=== PATIENT | female | born 1990 | race Caucasian/White ===

== ENCOUNTER 2016-04-15 13:01 | Emergency (ER) | payer BC ==
[~2016-04-15] VITALS: Ht 167.6 cm; Wt 71.1 kg
[~2016-04-15 13:01] MED LIST: ACTICLATE75 MG PO; CEFDINIR300 MG PO; MOTRIN800 MG PO; NAPROXEN500 MG PO; NOHOMEMEDS; SERTRALINE HCL100 MG PO; ZOFRAN4 MG PO
[2016-04-15 14:49] LABS: ADD MIUA? YES; BILIRUBIN NEGATIVE; BLOOD NEGATIVE; COLOR YELLOW ((YELLOW)); GLUCOSE (STRIP) NEGATIVE; KETONES NEGATIVE; LEUKOCYTES NEGATIVE; NITRITE NEGATIVE; PROTEIN (STRIP) 30; SPECIFIC GRAVITY 1.022 (1.000-1.030); UROBILINOGEN 0.2 MG/DL (0.2-1.0)
[2016-04-15 14:50] LABS: HEMATOCRIT 38.3 % (36.0-46.0); MCH 30.2 PG (29.0-34.0); MCHC 35.5 G/DL (30.0-36.0); MCV 85.1 FL (83-99); MEAN PLAT.VOLUME 10.1 uM^3 (9.5-12.4); PLATELET COUNT 242 K/uL (156-360); RBC DIS.WIDTH-CV 13.1 % (11.8-14.6); RBC DIS.WIDTH-SD 40.1 % (39-53); WHITE BLOOD COUNT 11.1 K/uL (4.1-10.2)
[2016-04-15 14:58] LABS: CHLORIDE 103 mEq/L (99-109); POTASSIUM 3.9 mEq/L (3.7-5.4); SODIUM 140 mEq/L (136-147)
[2016-04-15 14:59] LABS: GLUCOSE 140 mg/dL (70-99)
[2016-04-15 15:01] LABS: ANION GAP 12 MEQ/L (2-14)
[2016-04-15 15:03] LABS: GFR ESTIMATE (CALCULATED) > 59 mL/min/
[2016-04-15 15:04] LABS: UREA NITROGEN (BUN) 12 mg/dL (9-23)
[2016-04-15 15:08] LABS: BACTERIA 1+; CASTS NONE SEEN /LPF; CRYSTALS NONE SEEN; EPITHELIAL CELLS 1+; MUCUS NONE SEEN; PATHOLOGICAL CAST NONE SEEN; SMALL ROUND CELL NONE SEEN; UCUL ADDED? NO; WHITE BLOOD CELLS 0-5 /HPF (0-5); YEAST-LIKE CELL NONE SEEN
[2016-04-15 15:39] LABS: TOTAL BILIRUBIN 0.8 mg/dL (0.0-1.0)
[2016-04-15 15:40] LABS: ALKALINE PHOSPHATASE 64 IU/L (3-129)
[2016-04-15 15:42] LABS: DIRECT BILIRUBIN 0.3 mg/dL (0.0-0.3)
[2016-04-15 15:43] LABS: LIPASE 29 U/L (1.0-51.0)
[2016-04-15 15:49] LABS: QUANTITATIVE HCG < 4.0 MIU/ML
[2016-04-15] MEDS ORDERED: FLOMAX0.4 MG PO (16:53)
[2016-04-15] MEDS ORDERED: NAPROSYN500 MG PO (16:53)
[2016-04-15] MEDS ORDERED: NORCO 5/3251 TABLET PO (16:53)
[2016-04-15] MEDS ORDERED: ZOFRAN ODT4 MG PO (16:53)
[2016-04-15 17:10] VITALS: BP 117/78
== END 2016-04-15 18:16 | disposition home or self-care (01) ==
LOC: EME 13:01
DX: N20.0 Calculus of kidney (principal); R31.9 Hematuria, unspecified; Z87.442 Personal history of urinary calculi
CPT/HCPCS: 74000; 76856; 80048; 80076; 81003; 83690; 84702; 85027; 99281; 99284; J1885